=== PATIENT | male | born 1990 | race Caucasian/White ===

== ENCOUNTER 2016-08-23 19:55 | Emergency (ER) | payer BC, MEDICARE | END 2016-08-24 02:08 | disposition home or self-care (01) | LOC: ER1 19:55 | DX: S86.101A Unspecified injury of other muscle(s) and tendon(s) of posterior muscle group at lower leg level, right leg, initial encounter (principal); Y93.02 Activity, running; Y92.009 Unspecified place in unspecified non-institutional (private) residence as the place of occurrence of the external cause | CPT/HCPCS: 29505; 73564; 73590; 82550; 83874; 96360; 99283 ==